=== PATIENT | male | born 1945 | race Caucasian/White ===

== ENCOUNTER 2024-05-12 10:34 | Outpatient (AMB) | payer MEDICARE, OTHER, SELFPAY ==
[2024-05-12 10:38] VITALS: BP 140/67; PULSE 52; O2SAT 97; BMI 27.8
--- NOTE | 2024-05-12 10:38 | MHC.OFFVIS ---
Vital Signs 05/12/24 10:38 Height 6 ft Weight 205 lb BMI 27.8 BP 140/67 H Blood Pressure Location Rt brachial Position Sitting Pulse 52 Pulse Source Doppler Pulse Oximetry (%) 97 Oxygen Delivery Method Room Air Intake Visit Reasons: german Allergies No Known Allergies Allergy (Verified 05/12/24 10:43) HPI HPI german: Details: 78-year-old gentleman, minimal smoker in his 20s, with underlying severe obstructive sleep apnea on BiPAP presents to establish care. Patient states that his most recent sleep study was May of 2021 showing AHI of 43. He also had titration study necessitating use of BiPAP at 15 of 11 cm of water at that time. Patient states that he has been using his BiPAP with good control of his sleep apnea. [facility] Social History (Updated 05/12/24 @ 10:44 by Angélica Anderson Jamin) Patient Tobacco Use Status: Former Tobacco user Tobacco use type: Cigarette Review of Systems Const Denies fatigue, Denies lethargy and Denies snoring Resp Denies snoring Endo Denies fatigue Physical Exam Vital Signs: Last Vital Signs Pulse 52 05/12/24 10:38 BP 140/67 H 05/12/24 10:38 Pulse Ox 97 05/12/24 10:38 Oxygen Delivery Method Room Air 05/12/24 10:38 BMI result Body Mass Index 27.8 Const General: no acute distress and alert Nutritional Appearance: not obese Orientation/consciousness: Other orientation findings ( oriented) HEENT Head: Yes atraumatic Eyes General: appearance normal, both eyes and all related structures Sclerae: sclerae normal EOM: EOMs intact bilaterally Neck Neck: Yes supple Lymphatic: no lymphadenopathy noted Resp Effort & Inspection: normal respiratory effort and no use of accessory muscles Auscultation: clear to auscultation bilaterally Cardio Rate: regular rate Rhythm: regular rhythm Heart sounds: no gallops, no murmurs and no rubs Skin General skin exam: other ( warm) Extrem General: No clubbing, No cyanosis and No edema Assessment & Plan Assessment & Plan (1) GERMAN treated with BiPAP: Code(s): G47.33 - Obstructive sleep apnea (adult) (pediatric) Category: Medical Plan: Results of sleep study and titration study reviewed, underlying severe GERMAN controlled on BiPAP. Continue current therapy. Supplies order placed. Coding Level of Care Code New Pt Level 3 (06517) Diagnoses GERMAN treated with BiPAP G47.33
== END 2024-05-12 11:04 | disposition home or self-care (01) ==
PROVIDERS: PCP Internal Medicine; Visit Provider Internal Medicine Pulmonary Disease
DX: G47.33 Obstructive sleep apnea (adult) (pediatric) (principal)
CPT/HCPCS: 99203

== ENCOUNTER → 2024-05-12 10:34 | Outpatient (BNVA) | payer MEDICARE, OTHER, SELFPAY | PROVIDERS: PCP Internal Medicine; Visit Provider Internal Medicine Pulmonary Disease | DX: G47.33 Obstructive sleep apnea (adult) (pediatric) (principal); Z99.89 Dependence on other enabling machines and devices | CPT/HCPCS: 99202 ==